=== PATIENT | female | born 1995 | race Caucasian/White ===

== ENCOUNTER 2017-06-27 19:03 | Emergency (ER) | payer OTHER ==
[2017-06-27 19:24] LABS: BILIRUBIN,URINE NEGATIVE (NEGATIVE); GLUCOSE, URINE (UA) NEGATIVE (NEGATIVE); KETONES,URINE (UA) NEGATIVE (NEGATIVE); LEUKOCYTE ESTERASE, URINE NEGATIVE (NEGATIVE); NITRITE,URINE NEGATIVE (NEGATIVE); OCCULT BLOOD,URINE SMALL (NEGATIVE); PROTEIN,URINE NEGATIVE (NEGATIVE); UROBILINOGEN,URINE 0.2 (NORMAL) E.U./dL (NORMAL)
[2017-06-27 19:27] LABS: CLARITY,URINE HAZY (CLEAR)
[2017-06-27 19:28] LABS: HCG UR QUAL NEGATIVE
[2017-06-27 19:42] LABS: BACTERIA,URINE Moderate /HPF (None Seen); RBC,URINE 0-5 /HPF (0-5); SQUAMOUS EPITHELIAL CELL,UR MANY Squamous (<= Few)
--- NOTE | 2017-06-27 20:00 | ED Physician Documentation ---
PD HPI ABD PAIN - Stated complaint Stated Complaint: VOMITING/ABD PX - Chief complaint Chief Complaint: Abd Pain - History obtained from History obtained from: Patient - History of Present Illness Timing - onset: Other (Ate a salad at a restaurant 6 days ago and since then with watery diarrhea and stomach upset. Has vomitied as well but diarrhea, but no fevers.) Review of Systems Ten Systems: 10 systems reviewed and negative Constitutional: reports: Fatigue. denies: Fever, Chills GI: reports: Abdominal Pain, Nausea, Vomiting, Diarrhea. denies: Bloody / black stool : denies: Dysuria, Frequency PD PAST MEDICAL HISTORY - Past Medical History Past Medical History: Yes Psych: Depression, Anxiety - Past Surgical History Past Surgical History: No - Present Medications Home Medications: Ambulatory Orders Medication Instructions Recorded Confirmed Dicyclomine HCl 20 mg PO QID PRN #20 tablet 06/27/17 Loperamide [Imodium] 2 mg PO QID PRN #10 capsule 06/27/17 - Social History Does the pt smoke?: No Smoking Status: Never smoker Does the pt have substance abuse?: No - Immunizations Immunizations are current?: No - POLST Patient has POLST: No PD ED PE NORMAL - Vitals Vital signs reviewed: Yes - General General: Alert and oriented X 3, No acute distress - HEENT HEENT: PERRL, EOMI - Neck Neck: Supple, no meningeal sign, No bony TTP - Cardiac Cardiac: RRR, No murmur - Respiratory Respiratory: No respiratory distress, Clear bilaterally - Abdomen Abdomen: Normal bowel sounds, Soft, Non tender - Back Back: No CVA TTP, No spinal TTP - Derm Derm: Normal color, Warm and dry - Extremities Extremities: No edema, No calf tenderness / cord - Neuro Neuro: Alert and oriented X 3, Normal speech Results - Vitals Vitals: Vital Signs - 24 hr 06/27/17 19:13 Temperature 36.5 C Heart Rate 85 Respiratory 16 Rate Blood Pressure 137/70 H O2 Saturation 99 Oxygen O2 Source Room air - Labs Labs: Laboratory Tests 06/27/17 06/27/17 19:15 19:15 Urine Color YELLOW Urine Clarity [place] Urine pH 5.0 Ur Specific [place] >=1.030 H >=1.030 H Urine Protein NEGATIVE Urine Glucose (UA) NEGATIVE Urine Ketones NEGATIVE Urine Occult Blood SMALL H Urine Nitrite NEGATIVE Urine Bilirubin NEGATIVE Urine Urobilinogen 0.2 (NORMAL) Ur Leukocyte Esterase NEGATIVE Urine RBC 0-5 Urine WBC 0-3 Ur Squamous Epith Cells MANY Squamous H Urine Bacteria Moderate H Ur Microscopic Review INDICATED Urine Culture Comments NOT INDICATED Urine HCG, Qual NEGATIVE PD MEDICAL DECISION MAKING - ED course ED course: 21-year-old woman with diarrhea, the vomiting is less obtrusive to her. She has absolutely no abdominal tenderness and no fever. Stool studies were sent but she really mostly wants something to stop the diarrhea which is reasonable. Departure - Departure Disposition: 01 Home, Self Care Clinical Impression: Diarrhea Qualifiers: Diarrhea type: presumed infectious Qualified Code(s): R19.7 - Diarrhea, unspecified Condition: Good Record reviewed to determine appropriate education?: Yes Instructions: ED Diarrhea Viral Prescriptions: Dicyclomine HCl 20 mg PO QID PRN #20 tablet PRN Reason: Abdominal Cramps Loperamide [Imodium] 2 mg PO QID PRN #10 capsule PRN Reason: Diarrhea Comments: We will call if you stool culture or c.diff test is positive. Return if worse or for new symptoms.
[2017-06-27] MEDS ORDERED: LOPERAMIDE 2 MG CAPSULE PO STA (20:09)
[2017-06-27] MEDS ORDERED: DICYCLOMINE 10 MG CAPSULE PO STA (20:09)
[2017-06-27 20:19] VITALS: BP 124/77
== END 2017-06-27 20:19 | disposition home or self-care (01) ==
LOC: ED 19:03
DX: R11.2 Nausea with vomiting, unspecified (principal); R19.7 Diarrhea, unspecified
CPT/HCPCS: 81001; 81025; 87045; 87046; 87493; 99283; A9270; 81003; 87086

== ENCOUNTER 2017-08-17 11:37 | Emergency (ER) | payer OTHER ==
[2017-08-17] MEDS ORDERED: IBUPROFEN 400 MG TABLET PO STA (13:25)
[2017-08-17] MEDS ORDERED: LIDOCAINE PATCH 5% TOP PRN (13:25)
--- NOTE | 2017-08-17 13:31 | ED Physician Documentation ---
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 limited ROM no numbness no weakness no incont otherwise well no fever etc Review of Systems Constitutional: denies: Fever Cardiac: denies: Chest pain / pressure Respiratory: denies: Dyspnea GI: denies: Abdominal Pain : denies: Incontinent, Now EGA Musculoskeletal: reports: Back pain Neurologic: denies: Focal weakness, Numbness Endocrine: denies: Easy bruising / bleeding Immunocompromised: denies: Immunocompromised PD PAST MEDICAL HISTORY - Past Medical History Past Medical History: Yes Psych: Depression, Anxiety - Past Surgical History Past Surgical History: No - Present Medications Home Medications: Ambulatory Orders Medication Instructions Recorded Confirmed Alprazolam [Xanax] 0.5 mg PO PRN PRN 08/17/17 08/17/17 Clomid 08/17/17 Cyclobenzaprine [Flexeril] 10 mg PO QPM PRN #5 tablet 08/17/17 Ibuprofen [Motrin] 400 mg PO Q6H PRN #30 tablet 08/17/17 Lidocaine Patch 5% [Lidoderm Patch] 1 each TOP DAILY PRN #10 patch 08/17/17 - Allergies Allergies/Adverse Reactions: Allergies Allergy/AdvReac Type Severity Reaction Status Date / Time No Known Drug Allergies Allergy Verified 08/17/17 11:47 - Social History Does the pt smoke?: No Smoking Status: Never smoker Does the pt have substance abuse?: No - Immunizations Immunizations are current?: No - POLST Patient has POLST: No PD ED PE NORMAL - Vitals Vital signs reviewed: Yes - Neck Neck: Supple, no meningeal sign - Cardiac Cardiac: RRR - Respiratory Respiratory: No respiratory distress, Clear bilaterally - Abdomen Abdomen: Non tender, Other (no pulsatile mass) - Back Back: No spinal TTP, Other (soft tissue lumbar TTP and limited ext 2/2 pain no redness warmth swelling) - Neuro Neuro: No motor deficit, No sensory deficit, Other (denies saddle anesthesia, nl sensation, hip flex knee ext foot dorsi plantar and great toe ext 5/5, no clonus, patellar 2/4 serafin, neg SLR) Results - Vitals Vitals: Vital Signs - 24 hr 07/02/18 11:45 Temperature 36.5 C Heart Rate 74 Respiratory 18 Rate Blood Pressure 120/76 O2 Saturation 100 Oxygen O2 Source Room air PD MEDICAL DECISION MAKING - Sepsis Event Vital Signs: Vital Signs - 24 hr 08/17/17 11:45 Temperature 36.5 C Heart Rate 74 Respiratory 18 Rate Blood Pressure 120/76 O2 Saturation 100 Oxygen O2 Source Room air Departure - Departure Disposition: Home, Self Care Clinical Impression: Low back strain Qualifiers: Encounter type: initial encounter Qualified Code(s): S39.012A - Strain of muscle, fascia and tendon of lower back, initial encounter Condition: Good Instructions: ED Sprain Strain Lumbar Follow-Up: ALAINA GARCIA DO [Primary Care Provider] - Prescriptions: Cyclobenzaprine [Flexeril] 10 mg PO QPM PRN #5 tablet PRN Reason: Spasms Ibuprofen [Motrin] 400 mg PO Q6H PRN #30 tablet PRN Reason: Pain Lidocaine Patch 5% [Lidoderm Patch] 1 each TOP DAILY PRN #10 patch PRN Reason: Pain Forms: Activity restrictions
[2017-08-17 16:28] VITALS: BP 133/79
== END 2017-08-17 13:59 | disposition home or self-care (01) ==
LOC: ED 11:37
DX: S39.012A Strain of muscle, fascia and tendon of lower back, initial encounter (principal); X50.9XXA Other and unspecified overexertion or strenuous movements or postures, initial encounter; Y93.F2 Activity, caregiving, lifting; Y99.0 Civilian activity done for income or pay
CPT/HCPCS: 99283; A9270

== ENCOUNTER 2017-12-03 09:09 | Emergency (ER) | payer OTHER ==
[2017-12-03 09:15] VITALS: BP 113/75
[2017-12-03 09:44] LABS: BILIRUBIN,URINE NEGATIVE (NEGATIVE); GLUCOSE, URINE (UA) NEGATIVE (NEGATIVE); KETONES,URINE (UA) NEGATIVE (NEGATIVE); LEUKOCYTE ESTERASE, URINE NEGATIVE (NEGATIVE); NITRITE,URINE NEGATIVE (NEGATIVE); OCCULT BLOOD,URINE SMALL (NEGATIVE); PROTEIN,URINE NEGATIVE (NEGATIVE); UROBILINOGEN,URINE 0.2 (NORMAL) E.U./dL (NORMAL)
[2017-12-03 09:46] LABS: CLARITY,URINE CLEAR (CLEAR); HCG UR QUAL NEGATIVE
[2017-12-03 10:02] LABS: RBC,URINE 0-5 /HPF (0-5); SQUAMOUS EPITHELIAL CELL,UR FEW Squamous (<= Few)
[2017-12-03 10:03] LABS: BACTERIA,URINE Few /HPF (None Seen)
[2017-12-03] MEDS ORDERED: ACETAMINOPHEN 325 MG TABLET PO STA (10:06)
[2017-12-03] MEDS ORDERED: LIDOCAINE PATCH 5% TOP PRN (10:06)
--- NOTE | 2017-12-03 10:08 | ED Physician Documentation ---
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 [employer] pne prior back injury but she had fully recovered low back pain no fever no abd pain no incont no rad down legs no numbness or weakness Review of Systems Constitutional: denies: Fever GI: denies: Abdominal Pain, Nausea, Vomiting, Diarrhea : denies: Now EGA Musculoskeletal: reports: Back pain Neurologic: denies: Focal weakness, Numbness Endocrine: denies: Easy bruising / bleeding Immunocompromised: denies: Immunocompromised PD PAST MEDICAL HISTORY - Past Medical History Past Medical History: Yes Psych: Depression, Anxiety - Past Surgical History Past Surgical History: No - Present Medications Home Medications: Ambulatory Orders Medication Instructions Recorded Confirmed Alprazolam [Xanax] 0.5 mg PO PRN PRN 08/17/17 08/17/17 Clomid 08/17/17 Cyclobenzaprine [Flexeril] 10 mg PO QPM PRN #5 tablet 08/17/17 Ibuprofen [Motrin] 400 mg PO Q6H PRN #30 tablet 08/17/17 Lidocaine Patch 5% [Lidoderm Patch] 1 each TOP DAILY PRN #10 patch 08/17/17 Cyclobenzaprine [Flexeril] 10 mg PO QPM PRN #6 tablet 12/03/17 Ibuprofen [Motrin] 400 mg PO Q6H PRN #30 tablet 12/03/17 Lidocaine Patch 5% [Lidoderm Patch] 1 each TOP DAILY PRN #10 patch 12/03/17 - Allergies Allergies/Adverse Reactions: Allergies Allergy/AdvReac Type Severity Reaction Status Date / Time No Known Drug Allergies Allergy Verified 12/03/17 09:15 - Social History Does the pt smoke?: No Smoking Status: Never smoker Does the pt have substance abuse?: No - Immunizations Immunizations are current?: No - POLST Patient has POLST: No PD ED PE NORMAL - Vitals Vital signs reviewed: Yes - Cardiac Cardiac: RRR - Respiratory Respiratory: No respiratory distress - Abdomen Abdomen: Soft, Non tender, Other (no pulsatile mass) - Back Back: No spinal TTP, Other (diffuse low back pain and limited ext, no focal spine TTP redness swelling) - Neuro Neuro: No motor deficit, No sensory deficit, Other (neg SLR, patellar DTR 2+, no clonus, denies saddle anesthesia, hip flex knee ext foot dorsi plantar and great to ext all 5/5, nl sensation to legs) Results - Vitals Vitals: Vital Signs - 24 hr 12/03/17 09:13 Temperature 36.0 C L Heart Rate 78 Respiratory 16 Rate Blood Pressure 113/75 O2 Saturation 95 Oxygen O2 Source Room air - Labs Labs: Laboratory Tests 12/03/17 09:25 Urine Color YELLOW Urine Clarity CLEAR Urine pH 6.0 Ur Specific [place] 1.025 Urine Protein NEGATIVE Urine Glucose (UA) NEGATIVE Urine Ketones NEGATIVE Urine Occult Blood SMALL H Urine Nitrite NEGATIVE Urine Bilirubin NEGATIVE Urine Urobilinogen 0.2 (NORMAL) Ur Leukocyte Esterase NEGATIVE Urine RBC 0-5 Urine WBC 0-3 Ur Squamous Epith Cells FEW Squamous Urine Bacteria Few Ur Microscopic Review INDICATED Urine Culture Comments NOT INDICATED Urine HCG, Qual NEGATIVE Departure - Departure Disposition: 01 Home, Self Care Clinical Impression: Low back strain Qualifiers: Encounter type: initial encounter Qualified Code(s): S39.012A - Strain of muscle, fascia and tendon of lower back, initial encounter Condition: Good Instructions: ED Back Care Tips, ED Sprain Strain Lumbar Follow-Up: ALAINA GARCIA DO [Primary Care Provider] - Prescriptions: Cyclobenzaprine [Flexeril] 10 mg PO QPM PRN #6 tablet PRN Reason: back spasms Ibuprofen [Motrin] 400 mg PO Q6H PRN #30 tablet PRN Reason: Pain Lidocaine Patch 5% [Lidoderm Patch] 1 each TOP DAILY PRN #10 patch PRN Reason: Pain
== END 2017-12-03 10:49 | disposition home or self-care (01) ==
LOC: ED 09:09
DX: S39.012A Strain of muscle, fascia and tendon of lower back, initial encounter (principal); X50.9XXA Other and unspecified overexertion or strenuous movements or postures, initial encounter; Y99.0 Civilian activity done for income or pay
CPT/HCPCS: 1040M; 81001; 81025; 99283; A9270; 81003; 87086

== ENCOUNTER 2018-06-15 15:50 | Emergency (ER) | payer OTHER ==
[2018-06-15 15:55] VITALS: BP 129/84
--- NOTE | 2018-06-15 16:31 | ED Physician Documentation ---
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 The source patient is an elderly person without any known communicable illnesses.) Review of Systems Constitutional: reports: Reviewed and negative Eyes: reports: Reviewed and negative Nose: reports: Reviewed and negative PD PAST MEDICAL HISTORY - Past Medical History Psych: Depression, Anxiety - Past Surgical History Past Surgical History: No - Present Medications Home Medications: Ambulatory Orders Medication Instructions Recorded Confirmed Alprazolam [Xanax] 0.5 mg PO PRN PRN 08/17/17 08/17/17 Clomid 08/17/17 Cyclobenzaprine [Flexeril] 10 mg PO QPM PRN #5 tablet 08/17/17 Ibuprofen [Motrin] 400 mg PO Q6H PRN #30 tablet 08/17/17 Lidocaine Patch 5% [Lidoderm Patch] 1 each TOP DAILY PRN #10 patch 08/17/17 Cyclobenzaprine [Flexeril] 10 mg PO QPM PRN #6 tablet 12/03/17 Ibuprofen [Motrin] 400 mg PO Q6H PRN #30 tablet 12/03/17 Lidocaine Patch 5% [Lidoderm Patch] 1 each TOP DAILY PRN #10 patch 12/03/17 - Allergies Allergies/Adverse Reactions: Allergies Allergy/AdvReac Type Severity Reaction Status Date / Time No Known Drug Allergies Allergy Verified 06/15/18 15:54 - Social History Does the pt smoke?: No Smoking Status: Never smoker Does the pt have substance abuse?: No - Immunizations Immunizations are current?: No - POLST Patient has POLST: No PD ED PE NORMAL - Vitals Vital signs reviewed: Yes - General General: Alert and oriented X 3, No acute distress - Extremities Extremities: Other (No visible fingerstick on the finger.) - Neuro Neuro: Alert and oriented X 3, Normal speech Results - Vitals Vitals: Vital Signs - 24 hr 06/15/18 15:53 Temperature 36.6 C Heart Rate 72 Respiratory 20 Rate Blood Pressure 129/84 H O2 Saturation 99 Oxygen O2 Source Room air PD MEDICAL DECISION MAKING - ED course ED course: Seems like a pretty low risk exposure for communicable illnesses. We discussed the need for baseline follow-up testing and we offered postexposure prophylaxis for HIV which she declined after discussion. Departure - Departure Disposition: 01 Home, Self Care Clinical Impression: Needlestick injury accident Condition: Good Record reviewed to determine appropriate education?: Yes Instructions: ED Body Fluid Exp HC Worker Comments: YOU WILL NEED REPEAT TESTING FOR hiv AND HEPATITIS IN 2 MONTHS AND 6 MONTHS. TALK WITH YOUR DOCTOR ON BASE ABOUT THIS.
[2018-06-15] MEDS ORDERED: TETANUS/DIPHTHERIA/PERTUSSIS 0.5 ML SYRINGE IM ONE (16:34)
[2018-06-16 13:13] LABS: HEPATITIS C ANTIBODY NON-REACTIVE (NON-REACTIVE)
[2018-06-16 14:35] LABS: HIV AG/AB 4TH GEN NON-REACTIVE (NON-REACTIVE)
== END 2018-06-15 16:43 | disposition home or self-care (01) ==
LOC: ED 15:50
DX: Z77.21 Contact with and (suspected) exposure to potentially hazardous body fluids (principal); W46.1XXA Contact with contaminated hypodermic needle, initial encounter; Y92.129 Unspecified place in nursing home as the place of occurrence of the external cause; Y99.0 Civilian activity done for income or pay
CPT/HCPCS: 36415; 86317; 86803; 87389; 90471; 99282

== ENCOUNTER 2018-06-22 23:20 | Emergency (ER) | payer OTHER ==
--- NOTE | 2018-06-23 00:02 | ED Physician Documentation ---
PD HPI FEMALE - Stated complaint Stated Complaint: FEM /DIZZY/LOWER BK PX - Chief complaint Chief Complaint: UTI - History obtained from History obtained from: Patient - History of Present Illness Timing - onset: How many days ago (3) Timing - details: Gradual onset, Constant, Waxing and waning Associated symptoms: Fever, Dysuria, Urinary frequency Contributing factors: No: Similar symptoms before: Diagnosis (UTI) Recently seen: Clinic - Additional information Additional information: c/o 3 days of urinary frequency with burning dysuria. She saw PMD 2 days ago and was prescribed macrobid and pyridium. She has had 2 days of these medications thus far. She presents at this time due to worsening of her symptoms which have progressed to include chills/sweats and right flank/low back pain. Review of Systems Constitutional: reports: Chills, Sweats GI: denies: Abdominal Pain (suprapubic discomfort but not abdominal pain per se), Nausea, Vomiting : reports: Dysuria, Frequency. denies: Discharge, Vaginal bleeding, Now EGA Musculoskeletal: reports: Back pain PD PAST MEDICAL HISTORY - Past Medical History Past Medical History: Yes Psych: Depression, Anxiety - Past Surgical History Past Surgical History: No - Present Medications Home Medications: Ambulatory Orders Medication Instructions Recorded Confirmed Alprazolam [Xanax] 0.5 mg PO PRN PRN 08/17/17 06/22/18 Cyclobenzaprine [Flexeril] 10 mg PO QPM PRN #5 tablet 08/17/17 06/22/18 Nitrofurantoin Monohyd/M-Cryst 100 mg PO BID 06/22/18 06/22/18 [Macrobid 100 mg Capsule] Phenazopyridine [Pyridium] 100 mg PO TID 06/22/18 06/22/18 Ciprofloxacin HCl [Cipro] 500 mg PO BID #14 tablet 06/23/18 - Allergies Allergies/Adverse Reactions: Allergies Allergy/AdvReac Type Severity Reaction Status Date / Time No Known Drug Allergies Allergy Verified 06/15/18 15:54 - Social History Does the pt smoke?: No Smoking Status: Never smoker Does the pt drink ETOH?: Yes Does the pt have substance abuse?: No - Immunizations Immunizations are current?: Yes - POLST Patient has POLST: No PD ED PE NORMAL - Vitals Vital signs reviewed: Yes - General General: Alert and oriented X 3, No acute distress, Well developed/nourished - Abdomen Abdomen: Soft, Non tender - Derm Derm: Normal color, Warm and dry, No rash PD ED PE EXPANDED - Back Back: CVA TTP right (mild) Results - Vitals Vitals: Vital Signs - 24 hr 06/22/18 06/23/18 23:24 00:51 Temperature 36.7 C 36.0 C L Heart Rate 82 80 Respiratory 14 16 Rate Blood Pressure 123/89 H 108/75 O2 Saturation 96 97 Oxygen O2 Source Room air - Labs Labs: Laboratory Tests 06/22/18 23:00 Urine Color ORANGE Urine Clarity CLEAR Urine pH 6.5 Ur Specific [place] 1.020 Urine Protein Urine Glucose (UA) NEGATIVE Urine Ketones NEGATIVE Urine Occult Blood NEGATIVE Urine Nitrite Urine Bilirubin NEGATIVE Urine Urobilinogen Ur Leukocyte Esterase NEGATIVE Urine RBC None Seen Urine WBC 0-3 Ur Squamous Epith Cells MOD Squamous H Urine Bacteria None Seen Ur Microscopic Review INDICATED Urine Culture Comments NOT INDICATED Urine HCG, Qual NEGATIVE PD MEDICAL DECISION MAKING - ED course Complexity details: reviewed results, re-evaluated patient, considered differential, d/w patient ED course: UA is not s/o UTI at this time, but she was recently diagnosed with UTI (results not available to me at this time, but patient says urinalysis was performed and culture is pending), and her symptoms are c/w UTI progressing to early right- sided pyelonephritis. Unremarkable UA results could be due to partially-treated UTI; will change to Cipro and instructed to contact her doctor's office to inquire about culture results. H+P do not suggest alternative diagnosis at this time Departure - Departure Disposition: 01 Home, Self Care Clinical Impression: Pyelonephritis Condition: Good Instructions: ED Kidney Infec Female Follow-Up: ALAINA GARCIA DO [Primary Care Provider] - Prescriptions: Ciprofloxacin HCl [Cipro] 500 mg PO BID #14 tablet Discharge Date/Time: 06/23/18 00:53
[2018-06-23 00:05] LABS: BILIRUBIN,URINE NEGATIVE (NEGATIVE); GLUCOSE, URINE (UA) NEGATIVE (NEGATIVE); KETONES,URINE (UA) NEGATIVE (NEGATIVE); LEUKOCYTE ESTERASE, URINE NEGATIVE (NEGATIVE); OCCULT BLOOD,URINE NEGATIVE (NEGATIVE); PH,URINE 6.5 PH (5.0-7.5)
[2018-06-23 00:16] LABS: CLARITY,URINE CLEAR (CLEAR)
[2018-06-23 00:17] LABS: HCG UR QUAL NEGATIVE
[2018-06-23 00:20] LABS: BACTERIA,URINE None Seen /HPF (None Seen); RBC,URINE None Seen /HPF (0-5); SQUAMOUS EPITHELIAL CELL,UR MOD Squamous (<= Few)
[2018-06-23] MEDS ORDERED: CIPROFLOXACIN 250 MG TABLET PO STA (00:39)
[2018-06-23 00:53] VITALS: BP 108/75
== END 2018-06-23 00:53 | disposition home or self-care (01) ==
LOC: ED 23:20
DX: N12 Tubulo-interstitial nephritis, not specified as acute or chronic (principal)
CPT/HCPCS: 81001; 81025; 99283; A9270; 81003; 87086

== ENCOUNTER 2018-10-09 17:18 | Emergency (ER) | payer OTHER ==
[2018-10-09 17:35] VITALS: BP 129/69
[2018-10-09 17:43] LABS: CALCIUM 9.1 mg/dL (8.5-10.3); CREATININE 0.5 mg/dL (0.4-1.0)
[2018-10-09 18:02] LABS: BASOPHILS % (AUTO) 0.4 %; EOSINOPHILS # (AUTO) 0.1 10^3/uL (0.0-0.7); EOSINOPHILS % (AUTO) 1.4 %; HGB - HEMOGLOBIN 13.6 g/dL (12.0-16.0); LYMPHOCYTES # (AUTO) 3.1 10^3/uL (1.5-3.5); LYMPHOCYTES % (AUTO) 32.8 %; MEAN CORPUSCULAR HEMOGLOBIN 30.8 pg (27.0-31.0); MEAN CORPUSCULAR HGB CONC 33.1 g/dL (32.0-36.0); MEAN PLATELET VOLUME 10.7 fL (7.9-10.8); MONOCYTES # (AUTO) 0.5 10^3/uL (0.0-1.0); MONOCYTES % (AUTO) 5.6 %; NEUTROPHILS # (AUTO) 5.6 10^3/uL (1.5-6.6); NEUTROPHILS % (AUTO) 59.4 %; PLT - PLATELET COUNT 301 10^3/uL (130-450); RED BLOOD COUNT 4.42 10^6/uL (4.20-5.40); RED CELL DISTRIBUTION WIDTH 12.3 % (12.0-15.0); WHITE BLOOD COUNT 9.3 x10^3/uL (4.8-10.8)
[2018-10-09 18:17] LABS: BILIRUBIN,URINE NEGATIVE (NEGATIVE); GLUCOSE, URINE (UA) NEGATIVE (NEGATIVE); KETONES,URINE (UA) NEGATIVE (NEGATIVE); LEUKOCYTE ESTERASE, URINE NEGATIVE (NEGATIVE); NITRITE,URINE NEGATIVE (NEGATIVE); OCCULT BLOOD,URINE NEGATIVE (NEGATIVE); PROTEIN,URINE NEGATIVE (NEGATIVE); UROBILINOGEN,URINE 0.2 (NORMAL) E.U./dL (NORMAL)
--- NOTE | 2018-10-09 18:20 | ED Physician Documentation ---
PD HPI ABD PAIN - Stated complaint Stated Complaint: CRAMPS/8 WKS PREG - Chief complaint Chief Complaint: Abd Pain - History obtained from History obtained from: Patient (23-year-old G1 presents with cramping starting this morning without bleeding. She is at 7 weeks and 9 days by LMP.) Review of Systems Ten Systems: 10 systems reviewed and negative Constitutional: reports: Reviewed and negative Throat: reports: Reviewed and negative Cardiac: reports: Reviewed and negative PD PAST MEDICAL HISTORY - Past Medical History Psych: Depression, Anxiety - Past Surgical History Past Surgical History: No - Present Medications Home Medications: Ambulatory Orders Medication Instructions Recorded Confirmed Alprazolam [Xanax] 0.5 mg PO PRN PRN 08/17/17 06/22/18 Cyclobenzaprine [Flexeril] 10 mg PO QPM PRN #5 tablet 08/17/17 06/22/18 Nitrofurantoin Monohyd/M-Cryst 100 mg PO BID 06/22/18 06/22/18 [Macrobid 100 mg Capsule] RX: Phenazopyridine [Pyridium] 100 mg PO TID 06/22/18 06/22/18 Ciprofloxacin HCl [Cipro] 500 mg PO BID #14 tablet 06/23/18 - Allergies Allergies/Adverse Reactions: Allergies Allergy/AdvReac Type Severity Reaction Status Date / Time No Known Drug Allergies Allergy Verified 10/09/18 17:35 - Social History Does the pt smoke?: No Smoking Status: Never smoker Does the pt drink ETOH?: Yes Does the pt have substance abuse?: No - Immunizations Immunizations are current?: Yes - POLST Patient has POLST: No PD ED PE NORMAL - Vitals Vital signs reviewed: Yes - General General: Alert and oriented X 3, No acute distress - Abdomen Abdomen: Normal bowel sounds, Soft, Non tender - Female Female : Other (Bedside ultrasound demonstrates single live intrauterine with a heart rate of 146.) - Derm Derm: Normal color, Warm and dry - Extremities Extremities: No edema, No calf tenderness / cord - Neuro Neuro: Alert and oriented X 3, Normal speech Results - Vitals Vitals: Vital Signs - 24 hr 10/09/18 17:33 Temperature 36.8 C Heart Rate 84 Respiratory 18 Rate Blood Pressure 129/69 O2 Saturation 98 Oxygen O2 Source Room air - Labs Labs: Laboratory Tests 10/09/18 10/09/18 10/09/18 17:25 17:25 17:25 WBC 9.3 RBC 4.42 Hgb 13.6 Hct 41.1 MCV 93.0 MCH 30.8 MCHC 33.1 RDW 12.3 Plt Count 301 MPV 10.7 Neut # (Auto) 5.6 Lymph # (Auto) 3.1 [place] # (Auto) 0.5 Eos # (Auto) 0.1 Baso # (Auto) 0.0 Absolute Nucleated RBC 0.00 Nucleated RBC % 0.0 Sodium 137 Potassium 4.0 Chloride 104 Carbon Dioxide 25 Anion Gap 8.0 BUN 11 Creatinine 0.5 Estimated GFR (MDRD) 150 Glucose 95 Calcium 9.1 HCG, Quant Urine Color Urine Clarity Urine pH Ur Specific [place] Urine Protein Urine Glucose (UA) Urine Ketones Urine Occult Blood Urine Nitrite Urine Bilirubin Urine Urobilinogen Ur Leukocyte Esterase Ur Microscopic Review Urine Culture Comments Blood Type B POSITIVE 10/09/18 10/09/18 17:25 18:01 WBC RBC Hgb Hct MCV MCH MCHC RDW Plt Count MPV Neut # (Auto) Lymph # (Auto) [place] # (Auto) Eos # (Auto) Baso # (Auto) Absolute Nucleated RBC Nucleated RBC % Sodium Potassium Chloride Carbon Dioxide Anion Gap BUN Creatinine Estimated GFR (MDRD) Glucose Calcium HCG, Quant 20287.00 Urine Color YELLOW Urine Clarity CLEAR Urine pH 7.0 Ur Specific [place] 1.010 Urine Protein NEGATIVE Urine Glucose (UA) NEGATIVE Urine Ketones NEGATIVE Urine Occult Blood NEGATIVE Urine Nitrite NEGATIVE Urine Bilirubin NEGATIVE Urine Urobilinogen 0.2 (NORMAL) Ur Leukocyte Esterase NEGATIVE Ur Microscopic Review NOT INDICATED Urine Culture Comments NOT INDICATED Blood Type PD MEDICAL DECISION MAKING - ED course ED course: 23-year-old G1 presents with cramping in without bleeding, her ultrasound demonstrates a single live intrauterine and she was reassured. Departure - Departure Disposition: 01 Home, Self Care Clinical Impression: Abdominal cramping affecting Condition: Good Record reviewed to determine appropriate education?: Yes Instructions: ED Miscarriage Poss Comments: Your fetus looks fine on ultrasound, this makes the chance of miscarrying very unlikely. Return for new worsening symptoms. Follow-up with your OB next week as scheduled. Discharge Date/Time: 10/09/18 19:15
[2018-10-09 18:26] LABS: CLARITY,URINE CLEAR (CLEAR)
== END 2018-10-09 19:15 | disposition home or self-care (01) ==
LOC: ED 17:18
DX: O99.89 Other specified diseases and conditions complicating pregnancy, childbirth and the puerperium (principal); R10.9 Unspecified abdominal pain; Z3A.01 Less than 8 weeks gestation of pregnancy
CPT/HCPCS: 36415; 80048; 81001; 81003; 84702; 85025; 86900; 86901; 87086; 99282; 99283